=== PATIENT | female | born 1995 | race Caucasian/White ===

== ENCOUNTER 2021-08-16 15:06 | Outpatient (CLI) | payer OTHER, SELFPAY ==
--- NOTE | ~2021-08-16 | CT_ITS ---
EXAMINATION: CT abdomen pelvis w con EXAM DATE: 08/16/2021 16:17 INDICATION: Abdominal pain. History celiac disease. TECHNIQUE: Spiral CT of the abdomen and pelvis was performed following intravenous injection of 100 m L Omnipaque 350. Axial, coronal and sagittal images of the abdomen and pelvis were reviewed. The do se-length product (DLP) for this examination was 316.30 mGy-cm. The exposure was tailored according to patient size (auto mA exposure control), and iterative reconstruction (ASIR) was used as additiona l dose reduction technique. There is no prior study for comparison. FINDINGS: The liver, spleen, adrenal glands and pancreas are unremarkable. Gallbladder is unremarkab le. No biliary obstruction. Portal and splenic veins are patent. Kidneys enhance symmetrically. T here is no hydronephrosis. The uterus is unremarkable. The bladder is unremarkable. There is no retroperitoneal or pelvic lymphadenopathy. The appendix is normal. The stomach and small bowel are unremarkable. There is expected amount of c olonic stool. No free intraperitoneal gas. The heart is normal in size. There are no pericardial or pleural effusions. The lung bases are unremarkable. The bones are unremarkable. IMPRESSION: 1. No acute intra-abdominal findings. Reviewed, dictated and finalized at location A.
== END 2021-08-16 15:07 | disposition home or self-care (01) ==
LOC: ANHIMG 15:14
PROVIDERS: PCP Emergency Medicine; Visit Provider Emergency Medicine
DX: R10.9 Unspecified abdominal pain (principal)
CPT/HCPCS: 74177; Q9967

== ENCOUNTER 2022-05-13 13:35 | Emergency (ER) | payer OTHER, SELFPAY ==
[2022-05-13 13:44] VITALS: BP 103/71; PULSE 87; RESP 18; TEMP 36.9; O2SAT 99
--- NOTE | 2022-05-13 14:29 | ED.GENADULT ---
HPI - General Adult General Chief complaint: Skin/Abscess/Foreign Body Stated complaint: abscess to L check Time Seen by Provider: 05/13/22 14:19 History of Present Illness HPI narrative: pt here with left cheek lesion woke up wiht it has spiders in house and got ointment then went back to adn got bactrim says concerned b/c still there only 3 days and firm lymph node tender in neck no sob/troulbe swallowing sob/cp/dental or uri/throat issues no otc pain meds and not preg says worried about tetanus but 24 adn deosnt' remember a bite Related Data Allergies Allergy/AdvReac Type Severity Reaction Status Date / Time No Known Allergies Allergy Unverified 04/11/14 18:12 Review of Systems Constitutional: Comments: CONSTITUTIONAL: Denies fever, chills, or sweats. EYES: Denies visual changes, redness, or discharge. ENT: Denies rhinorrhea, congestion, sore throat, or otalgia. CARDIOVASCULAR: Denies chest pain, palpitations, or edema. RESPIRATORY: Denies cough or dyspnea. GASTROINTESTINAL: Denies abdominal pain, nausea, vomiting, or diarrhea. GENITOURINARY: Denies dysuria or hematuria. SKIN: Denies rash or itching. lesion left cheek MUSCULOSKELETAL: Denies back pain, joint pain, or myalgia. NEUROLOGIC: Denies headache, numbness, or weakness. PSYCHIATRIC: Denies anxiety or depression. Exam HENMT: Head: normal to inspection General nose exam: Normal external nose present Teeth and gingiva: dentition normal Throat: posterior oropharynx normal and uvula midline Other: wnl has left cheek 0.5mm left skin folliculitis no s/s abscess no cellulitis no trismus Eyes: Conjunctivae: conjunctivae normal Pupils: Equal, round and reactive pupils present EOM: EOMs intact bilaterally Neck: Neck: normal visual inspection, no meningeal signs and lymphadenopathy (left more than right anterior tend no s/s abscess no tracheal shift/stridor) Resp: Effort & Inspection: normal respiratory effort Skin: Other: see head exam Neuro: General: patient oriented x3, moves all extremities and no focal motor deficits Gait exam (Neuro): Normal gait present Extrem: General: normal to inspection and no pedal edema Psych: Mental Status: mental status grossly normal Course Course Emergency Course: explained could update tdap but pt declining aware of risks/benefits also I explained very unlikely brown recluse given how this has progressed. also ? if insect bite at all vs scratch in sleep pt good wiht continuing abx, cream and adding otc pain meds and warm compresses Vital Signs Vital signs: Vital Signs Temperature 36.9 C 05/13/22 13:44 Pulse Rate 87 05/13/22 13:44 Respiratory Rate 18 05/13/22 13:44 Blood Pressure 103/71 05/13/22 13:44 Pulse Oximetry 99 05/13/22 13:44 Oxygen Delivery Room Air 05/13/22 13:44 Temperature 36.9 C 05/13/22 13:44 Pulse Rate 87 05/13/22 13:44 Respiratory Rate 18 05/13/22 13:44 Blood Pressure 103/71 05/13/22 13:44 Pulse Oximetry 99 05/13/22 13:44 Oxygen Delivery Room Air 05/13/22 13:44 Medical Decision Making Vital Signs Vital Signs: Vital Signs Temperature 36.9 C 05/13/22 13:44 Pulse Rate 87 05/13/22 13:44 Respiratory Rate 18 05/13/22 13:44 Blood Pressure 103/71 05/13/22 13:44 Pulse Oximetry 99 05/13/22 13:44 Oxygen Delivery Room Air 05/13/22 13:44 Temperature 36.9 C 05/13/22 13:44 Pulse Rate 87 05/13/22 13:44 Respiratory Rate 18 05/13/22 13:44 Blood Pressure 103/71 05/13/22 13:44 Pulse Oximetry 99 05/13/22 13:44 Oxygen Delivery Room Air 05/13/22 13:44 Discharge Plan Discharge Clinical Impression: Folliculitis Patient Disposition: Home, Self-Care Condition: Stable Instructions: Antibiotic Form, Folliculitis (ED) Additional Instructions: continue all previous meds, warm compresses, tylenol motrin over the counter and call your doc for further care, return if new issues Follow-up/Referrals: Mina Hodges M
== END 2022-05-13 15:37 | disposition home or self-care (01) ==
LOC: ANHED 14:39
PROVIDERS: Emergency Provider Emergency Medicine; PCP Emergency Medicine
DX: L73.9 Follicular disorder, unspecified (principal)
CPT/HCPCS: 99281

== ENCOUNTER 2023-02-08 16:16 | Emergency (ER) | payer OTHER, SELFPAY ==
[2023-02-08] VITALS (12 sets, daily range): BP systolic 112–136; BP diastolic 73–103; PULSE 83–110; RESP 18; TEMP 36.6; O2SAT 88–100
--- NOTE | ~2023-02-08 | CT_ITS ---
EXAMINATION: CT abdomen pelvis w con INDICATION: Diffuse abdominal cramping and hematemesis TECHNIQUE: Computed tomographic images of the abdomen and pelvis were obtained after the administrati on of 100 cc of Omnipaque 350 intravenous contrast. The dose-length product (DLP) was 255.59 mGy-cm. Automated exposure control and iterative reconstruction technique were employed. COMPARISON: 08/16/2021 FINDINGS: The lung bases are clear. The heart size is normal. No definite abnormality is identified i n the incompletely distended stomach. The liver, spleen, pancreas, gallbladder, and adrenal glands ar e normal. The kidneys are unremarkable. No pathologically enlarged abdominal or pelvic lymph nodes ar e identified. No free intraperitoneal gas or evidence of bowel obstruction. There is a short segment small bowel small bowel intussusception in the left midabdomen. There are a moderate volume of fluid in the pelvis and right adnexa. IMPRESSION: 1. No CT correlate for the patient's symptoms. 2. Moderate volume of free fluid in the pelvis and right adnexa which could reflect ruptured ovarian cyst. Reviewed, dictated and finalized at location F. IMPRESSION: 1. No CT correlate for the patient's symptoms. 2. Moderate volume of free fluid in the pelvis and right adnexa which could ref lect ruptured ovarian cyst.
[2023-02-08 16:54] LABS: Add Urine Microscopic? NO; Appearance Urine Clear (Clear); Bilirubin Urine Negative (Negative); Blood Urine Negative (Negative); Color Urine Yellow (Yellow); Glucose Urine UA Negative (Negative); Ketones Urine Negative (Negative); Leukocyte Esterase Ur Negative LEU/UL (Negative); Nitrate Urine Negative (Negative); Protein Urine Negative (Negative); Specific Grav Ur 1.006 (1.001-1.035); Urobilinogen Urine 0.2 mg/dL (<2.0); pH Urine 8.5 (5.0-9.0)
[2023-02-08 17:15] LABS: Basophils Absolute Auto 0.1 K/mm3 (0.0-0.1); Basophils Percent Auto 0.8 % (0.2-1.2); Eosinophils Percent Auto 0.2 % (0-4.4); Hematocrit 41.9 % (37.0-47.0); Hemoglobin 14.3 g/dL (12.0-15.0); Immature Granulocyte Absolute 0.01 K/mm3 (0.00-0.031); Immature Granulocyte Percent A 0.2 % (0-0.5); Lymphocytes Percent Auto 40.7 % (18.3-44.2); Mean Corpuscular HGB Conc 34.1 g/dl (32-36); Mean Corpuscular Hemoglobin 32.4 pg (26-34); Mean Platelet Volume 10.6 fl (7.4-10.4); Monocytes Absolute Auto 0.6 K/mm3 (0.1-0.6); Neutrophils Absolute Auto 2.8 K/mm3 (1.3-6.7); Neutrophils Percent Auto 48.1 % (45.5-73.1); Platelet Count Result 246 k/mm3 (150-375); Red Blood Count 4.41 M/mm3 (4.2-5.4); Red Cell Distribution Width 12.4 % (11.5-14.5); White Blood Count 5.9 K/mm3 (4.5-10.0)
[2023-02-08 17:18] LABS: Alanine Aminotransferase 19 U/L (6-35); Albumin Level 4.9 g/dL (3.5-5.1); Alkaline Phosphatase 56 U/L (38-126); Anion Gap 10 mmol/L (8-16); Aspartate Amino Transferase 24 U/L (14-36); Bilirubin,Total 0.5 mg/dL (0.2-1.3); Blood Urea Nitrogen 8 mg/dL (7-17); Calcium 9.2 mg/dL (8.4-10.2); Carbon Dioxide 27 mmol/L (22-30); Chloride 101 mmol/L (98-107); Estimated CRCL calculation 113 ml/min; Estimated Glomerular Filt Rate > 60; Glucose 89 mg/dL (65-110); Lipase 30 U/L (23-300); Potassium 3.5 mmol/L (3.4-5.0); Sodium 138 mmol/L (137-145)
[2023-02-08] MEDS: SODIUM CHLORIDE 0.9% IV 1,000 ML 999 ML IV CONT ×2 (17:33→18:41)
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
[2023-02-08 17:55] LABS: Lipase 32 U/L (23-300); Magnesium 2.1 mg/dL (1.6-2.3)
[2023-02-08 18:08] LABS: INR 1.1; Prothrombin Time 13.7 Seconds (11.1-14.7)
[2023-02-08 18:09] LABS: Partial Thromboplastin Time 27.2 SECONDS (22.3-36.8)
[2023-02-08] MEDS: PANTOPRAZOLE SODIUM IV 40 MG VIAL 80 MG IV PUSH (18:41)
[2023-02-08] MEDS: ONDANSETRON INJ 4 MG/2 ML VIAL IV PUSH (18:41)
== END 2023-02-08 19:49 | disposition home or self-care (01) ==
PROVIDERS: Emergency Medicine; Emergency Provider Physician Assistant; PCP Emergency Medicine
DX: K20.90 Esophagitis, unspecified without bleeding (principal)
CPT/HCPCS: 36415; 74177; 80053; 81003; 81025; 83690; 83735; 85025; 85610; 85730; 86850; 86900; 86901; 96361; 96374; 96375; 99284; C9113; J2405; J7030; Q9967

== ENCOUNTER 2023-03-18 09:00 | Outpatient (NON) | payer OTHER, SELFPAY | END 2023-03-18 09:01 | disposition home or self-care (01) | LOC: ANHLAB 03-19 12:47 | PROVIDERS: PCP Emergency Medicine; Visit Provider Internal Medicine Gastroenterology | DX: R63.4 Abnormal weight loss (principal) | CPT/HCPCS: 88305 ==

== ENCOUNTER 2023-03-18 10:41 | Day surgery (SDC) | payer OTHER, SELFPAY ==
[2023-03-04 13:35] VITALS: BMI 23.8
[2023-03-14 15:11] VITALS: BMI 23.8
--- NOTE | 2023-03-15 15:30 | WPDANESEPPF ---
Anes - Initial Pre Proc Eval Procedure: Operation Date: 03/18/23 13:00 Proposed Procedures p Esophagogastroduodenoscopy - Wilfredo Sinha MD Date/Time: 03/15/23 15:30 Surgeon: Wilfredo Sinha MD Pre Op Diagnosis: Hematemesis, Abnormal Weight Loss Patient Data Age: 27 Gender: F Height: 1.57 m Weight: 59 kg Allergies Allergy/AdvReac Type Severity Reaction Status Date / Time No Known Allergies Allergy Unverified 03/14/23 15:14 Home Medications Medication Instructions Recorded Confirmed Type omeprazole 20 mg capsule,delayed 20 mg PO DAILY #30 caps 02/08/23 03/14/23 Rx release dextroamphetamine-amphetamine 10 10 mg PO BID 02/13/23 03/14/23 History mg tablet (Adderall) Patient hx anesthesia problems: none Family hx anesthesia problems: none Results Review: All pre-operative results and documents have been reviewed as part of the pre-operative evaluation. [facility] Past Medical History Medical History (Updated 02/13/23 @ 15:10 by Isha Jo APRN) Abdominal pain Abnormal celiac antibody panel Abnormal weight loss Chronic diarrhea Coffee ground emesis Intussusception of small bowel Surgical History Surgical History (Updated 03/07/23 @ 14:49 by Lakshmi Eubanks CMA) H/O gynecological procedure hymenal tag removed 06/24/2014 Family History Family History (Updated 03/07/23 @ 14:47 by Lakshmi Eubanks CMA) Grandparent Diabetes mellitus Social History Social History (Updated 03/07/23 @ 14:48 by Lakshmi Eubanks CMA) Smoking packs per day: 1 Smoking cigarettes per day: 20.0 Years smoked: 5 Smoking pack-years: 5.00 Smoking status: Current every day smoker Tobacco type: cigarettes Alcohol intake: current Alcohol use details: weekends Substance use: never Substance use type: does not use Living arrangements: with family Spiritual care concerns: No Anes - Eval Final PreProcedure Day of Procedure 03/15/23 15:30 Patient weight: normal Heart: regular rate and rhythm Lungs: clear to auscultation and normal air movement Airway: Mallampati scale class II Neurological: alert and oriented Last oral intake: >/= 8 hours ASA classification: II Emergent: no Anesthetic plan: proceed Anesthesia type and monitoring: general GIVS Results Review: All pre-operative results and documents have been reviewed as part of the pre-operative evaluation. Informed Consent: The patient's anesthetic plan and its attendant risks and benefits were discussed with the patient/family/POA. Questions were solicited and answers provided to the satisfaction of the patient/family/POA.
[2023-03-18 11:00] VITALS: BP 95/63; PULSE 76; RESP 20; TEMP 36.7; O2SAT 99
[2023-03-18] MEDS: LACTATED RINGERS 1,000 ML 150 ML IV CONT (12:00)
--- NOTE | 2023-03-18 12:40 | PM.HPGS ---
History of Present Illness History of Present Illness Consent: Risks, benefits, and alternatives have been discussed and questions answered. Patient agrees to proceed with procedure. Chief complaint: Hematemesis, Abnormal Weight Loss Narrative: Carla Miner is a 27 year old female who few weeks ago had coffee ground emesis, came to ER- CT without GI etiology, also known history of celiac on diet. Never had egd Review of Systems Constitutional: Constitutional: Denies headache(s) and Denies weakness Eyes: Eyes: Denies blurry vision ENT: Reports Normal hearing present, Denies headache(s) and Denies neck pain Cardiovascular: Cardiovascular: Denies chest pain and Denies dyspnea Respiratory: Respiratory: Denies dyspnea Gastrointestinal: Gastrointestinal: Reports no additional gastrointestinal complaints Genitourinary: Genitourinary: Denies dysuria Musculoskeletal: Musculoskeletal: Denies neck pain Integumentary/Breasts: Skin/Breast: Denies dry skin Neurologic: Reports Normal hearing present, Denies headache(s) and Denies weakness Psychiatric: Psychiatric: Denies anxiety Endocrine: Endocrine: Denies change in body appearance Hematologic/Lymphatic: Hematologic/Lymphatic: Denies easy bleeding Allergic/Immunologic: Allergic/Immunologic: Denies urticaria PMFSH Past Medical History Medical History (Updated 02/13/23 @ 15:10 by Isha Jo, YAA) Abdominal pain Abnormal celiac antibody panel Abnormal weight loss Chronic diarrhea Coffee ground emesis Intussusception of small bowel Surgical History Surgical History (Updated 03/07/23 @ 14:49 by Lakshmi Eubanks CMA) H/O gynecological procedure hymenal tag removed 06/24/2014 Family History Family History (Updated 03/07/23 @ 14:47 by Lakshmi Eubanks CMA) Grandparent Diabetes mellitus Social History Social History (Updated 03/07/23 @ 14:48 by Lakshmi Eubanks CMA) Smoking packs per day: 1 Smoking cigarettes per day: 20.0 Years smoked: 5 Smoking pack-years: 5.00 Smoking status: Current every day smoker Tobacco type: cigarettes Alcohol intake: current Alcohol use details: weekends Substance use: never Substance use type: does not use Living arrangements: with family Spiritual care concerns: No Meds Home Medications and Allergies Home Medications Medication Instructions Recorded Confirmed Type omeprazole 20 mg capsule,delayed 20 mg PO DAILY #30 caps 02/08/23 03/18/23 Rx release dextroamphetamine-amphetamine 10 10 mg PO BID 02/13/23 03/18/23 History mg tablet (Adderall) Allergies Allergy/AdvReac Type Severity Reaction Status Date / Time No Known Allergies Allergy Unverified 03/18/23 11:56 Vital Signs Vital Signs - 24 hr 03/18/23 11:00 Temperature 98.1 F Pulse Rate 76 Respiratory Rate 20 Blood Pressure 95/63 L Pulse Oximetry 99 Oxygen Delivery Room Air Exam Const: General: comfortable and no acute distress HENMT: Face/Nose/Sinus: Normal nares present Eyes: General: appearance normal, both eyes and all related structures Neck: Neck: no JVD Resp: Auscultation: clear to auscultation bilaterally Cardio: Rate: regular rate Rhythm: regular rhythm GI: Inspection: non-distended GI Palp: Yes Soft to palpation Skin: General skin exam: normal color Neuro: General: gait normal Speech: normal speech Extrem: General: normal to inspection Psych: Mental Status: mental status grossly normal Assessment and Plan Assessment and plan (1) Abnormal celiac antibody panel: Code(s): R89.4 - Abnormal immunological findings in specimens from other organs, systems and tissues Status: Acute Assessment and Plan: gluten free diet will get duodenal bx (2) Coffee ground emesis: Code(s): K92.0 - Hematemesis Status: Acute Assessment and Plan: will assess with egd no more episodes since that time using omeprazole as needed
[2023-03-18 12:56] VITALS: BP 104/66; PULSE 74; RESP 14; O2SAT 99
[2023-03-18 13:06] VITALS: BP 99/76; PULSE 82; RESP 16; O2SAT 99
[2023-03-18 13:16] VITALS: BP 101/71; PULSE 79; RESP 16; O2SAT 100
--- NOTE | 2023-03-26 08:39 | WPDANESPN ---
Anes - Prog Note Post-Op Date/Time: 03/26/23 08:39 Cardiovascular status: normal Respiratory status: normal Airway patency: baseline Mental status: baseline Post-Op hydration status: normal Vital Signs: Last Vital Signs Temp 36.7 C 03/18/23 11:00 Pulse 79 03/18/23 13:16 Resp 16 03/18/23 13:16 BP 101/71 03/18/23 13:16 Pulse Ox 100 03/18/23 13:16 O2 Del Method Room Air 03/18/23 13:16 Pain Score (VAS): 0 Post-procedural complaints: none Patient Feedback: Patient satisfied with anesthetic care.
== END 2023-03-18 13:40 | disposition home or self-care (01) ==
PROVIDERS: PCP Emergency Medicine; Visit Provider Internal Medicine Gastroenterology
PROC: 0DJ08ZZ Inspection of Upper Intestinal Tract, Via Natural or Artificial Opening Endoscopic (ICD-10-PCS; CPT 43235; principal; 2023-03-18 13:00)
DX: K92.0 Hematemesis (principal)
CPT/HCPCS: 43239

== ENCOUNTER 2024-01-07 12:16 | Emergency (ER) | payer SELFPAY ==
--- NOTE | ~2024-01-07 | XR_ITS ---
EXAMINATION: XR foot LT min 3V DATE: 01/07/2024 14:14 INDICATION: Left foot injury. TECHNIQUE: 4 views of left foot were obtained. COMPARISON: None. FINDINGS: Bone alignment is normal. No acute fracture. There is an old healed fracture of neck of fif th metatarsal. Joint spaces are normal. IMPRESSION: 1. No acute fracture. Reviewed, dictated and finalized at location A. KNIT OPERATOR IMPRESSION: 1. No acute fracture.
--- NOTE | ~2024-01-07 | CT_ITS ---
EXAMINATION:CT diagnostic chest wo con DATE: 01/07/2024 14:02 INDICATION: Chest injury. TECHNIQUE: Computed tomography (CT) of the chest was performed without intravenous contrast. Automate d exposure control and iterative reconstruction technique were employed. The dose-length product (DLP ) was 139.52 mGy-cm. COMPARISON: CT abdomen and pelvis 02/08/2023 FINDINGS: There is no pneumonia or pleural effusion. The heart size is normal. No pericardial effusio n. There is mild thoracic spondylosis. IMPRESSION: 1. No posttraumatic findings. Reviewed, dictated and finalized at location A. EAR MEDICINE SUPERVISOR
[2024-01-07 12:56] VITALS: BP 110/57; PULSE 93; RESP 20; TEMP 36.1; O2SAT 100
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
--- NOTE | 2024-01-07 13:41 | ECG_ITS ---
Measurements Intervals [place] Rate: 67 P: -27 HI: 122 QRS: 18 QRSD: 110 T: 6 QT: 397 QTc: 420 Interpretive Statements SINUS RHYTHM WITH SINUS ARRHYTHMIA INCOMPLETE RIGHT BUNDLE BRANCH BLOCK [90+ ms QRS DURATION, TERMINAL R IN V1/V2, 40+ ms S IN I/aVL/V4/V5/V6] BORDERLINE ECG NO PREVIOUS ECG AVAILABLE FOR COMPARISON Electronically Signed On 01-07-2024 15:41:06 TUBE WRAPPER by Marciano Gould M.D.
--- NOTE | 2024-01-07 13:52 | PC.NURSE ---
pt to xray/ct via w/c
== END 2024-01-07 15:02 | disposition home or self-care (01) ==
LOC: ANHED 14:45
PROVIDERS: Emergency Provider Physician Assistant; PCP Emergency Medicine
DX: S20.214A Contusion of middle front wall of thorax, initial encounter (principal); S93.602A Unspecified sprain of left foot, initial encounter; F17.210 Nicotine dependence, cigarettes, uncomplicated; V28.49XA Other motorcycle driver injured in noncollision transport accident in traffic accident, initial encounter
CPT/HCPCS: 71250; 73630; 81025; 93005; 99284